=== PATIENT | female | born 1960 | race African-American/Black ===

== ENCOUNTER → 2021-08-06 | Outpatient (CLI) | payer OTHER, MEDICARE ==
[~2021-08-06] MED LIST: AMLO1TAB24 PO; ASPI81TA26 PO; METO1TAB32 PO; SYNT25TA PO; VENTAER INH
== END ==
LOC: M LABSMTC 11:11
PROVIDERS: ATTEND Anesthesiology
DX: Z01.812 Encounter for preprocedural laboratory examination (principal); Z20.822 Contact with and (suspected) exposure to COVID-19

== ENCOUNTER 2021-08-11 08:03 | Day surgery (SDC) | payer OTHER ==
[~2021-08-11] VITALS: Ht 152.4 cm; Wt 99.3 kg
[~2021-08-11 08:03] MED LIST changes: +NS 1,000 ML IV ONE
[2021-08-11] MEDS ORDERED: propofoL 200 MG/20 ML VIAL As Ordered ONE (08:33)
[2021-08-11] MEDS ORDERED: LIDOCAINE 2% 100MG/5ML SDV (FOR ANES.) As Ordered ONE (08:33)
[2021-08-11 10:18] VITALS: BP 141/67
== END 2021-08-11 10:18 | disposition home or self-care (01) ==
LOC: M OPP 08:03
PROVIDERS: ATTEND Internal Medicine Gastroenterology
DX: Z12.11 Encounter for screening for malignant neoplasm of colon (principal); Z80.0 Family history of malignant neoplasm of digestive organs; K63.5 Polyp of colon; K57.30 Diverticulosis of large intestine without perforation or abscess without bleeding; K64.8 Other hemorrhoids; I10 Essential (primary) hypertension; E03.9 Hypothyroidism, unspecified; J45.909 Unspecified asthma, uncomplicated; R42 Dizziness and giddiness; Z88.0 Allergy status to penicillin; Z79.82 Long term (current) use of aspirin; Z79.899 Other long term (current) drug therapy; Z80.3 Family history of malignant neoplasm of breast; Z83.3 Family history of diabetes mellitus; Z82.3 Family history of stroke

== ENCOUNTER → 2023-09-10 | Outpatient (REF) | payer OTHER ==
[~2023-09-10] MED LIST changes: -NS 1,000 ML IV ONE
[2023-09-10 18:20] LABS: BASO % 0.5 % (0.0-1.0); EOS # 0.3 10^3/uL (0.0-0.5); EOS % 3.8 % (0.0-3.0); HEMATOCRIT 40.7 % (36.0-47.0); HEMOGLOBIN 12.6 g/dl (12.0-15.5); LYMPH # 3.7 10^3/uL (1.5-5.0); LYMPH % 48.4 % (24.0-44.0); MEAN CORPUSCULAR HEMOGLOBIN 28.6 pg (27.0-33.0); MEAN CORPUSCULAR VOLUME 92.3 fl (80.0-96.0); MONO # 0.4 10^3/uL (0.0-0.8); MONO % 5.8 % (2.0-8.0); NEUTROPHILS # 3.1 10^3/uL (1.5-8.5); NEUTROPHILS % 41.1 % (36.0-66.0); PLATELET COUNT, AUTOMATED 323 10^3/uL (150-450); RED BLOOD COUNT 4.41 10^6/uL (4.00-5.40); WHITE BLOOD COUNT 7.6 10^3/uL (4.0-10.0)
[2023-09-10 18:50] LABS: HEMOGLOBIN A1c 6.2 % (4.0-6.0)
[2023-09-10 18:54] LABS: ALBUMIN 3.8 G/DL (3.2-5.2); ALKALINE PHOSPHATASE 84 U/L (46-116); ALT/SGPT < 9 U/L (7.0-40); AST/SGOT 9 U/L (<34); BILIRUBIN,TOTAL 0.4 MG/DL (0.3-1.2); BLOOD UREA NITROGEN 12 MG/DL (9-23); CALCIUM LEVEL 9.8 MG/DL (8.3-10.6); CARBON DIOXIDE LEVEL 32 MMOL/L (20-31); CHLORIDE LEVEL 103 MMOL/L (98-107); CHOLESTEROL LEVEL 189 MG/DL (<200); CHOLESTEROL RISK RATIO 4.38 (<5); CREATININE FOR GFR 0.81 MG/DL (0.55-1.30); GLOMERULAR FILTRATION RATE > 60.0 (>45); GLUCOSE, FASTING 86 MG/DL (74-106); HDL CHOLESTEROL 43.1 MG/DL (>40); LDL CHOLESTEROL 115.9 MG/DL (<100); NON-HDL-C 145.9 MG/DL; POTASSIUM SERUM 4.3 MMOL/L (3.5-5.1); SODIUM LEVEL 139 MMOL/L (136-145); TOTAL PROTEIN 7.9 G/DL (5.7-8.2); TRIGLYCERIDES LEVEL 150 MG/DL (<150)
[2023-09-10 18:58] LABS: THYROID STIMULATING HORMONE 4.645 uIU/ML (0.55-4.78)
[2023-09-10 18:59] LABS: TOTAL 25(OH) VITAMIN D 42.9 NG/ML (20.0-100.0)
== END ==
LOC: M LAB REF 14:53
PROVIDERS: ATTEND Physician Assistant
DX: I10 Essential (primary) hypertension (principal); E66.9 Obesity, unspecified; E55.9 Vitamin D deficiency, unspecified

== ENCOUNTER → 2023-10-26 | Outpatient (CLI) | payer OTHER | LOC: M WHC 15:07 | PROVIDERS: ATTEND Physician Assistant | DX: Z12.31 Encounter for screening mammogram for malignant neoplasm of breast (principal); R92.323 Mammographic fibroglandular density, bilateral breasts ==

== ENCOUNTER → 2024-04-12 | Outpatient (CLI) | payer OTHER, MEDICARE | LOC: M CARPUL 15:16 | PROVIDERS: ATTEND Physician Assistant | DX: R06.09 Other forms of dyspnea (principal) ==

== ENCOUNTER → 2024-08-10 | Outpatient (CLI) | payer OTHER, MEDICARE | LOC: M EKG 15:49 | PROVIDERS: ATTEND Physician Assistant | DX: R00.2 Palpitations (principal) ==

== ENCOUNTER → 2024-08-29 | Outpatient (CLI) | payer MEDICARE ==
[2024-08-29 12:13] LABS: HEMATOCRIT 37.5 % (36.0-47.0); HEMOGLOBIN 11.9 g/dl (12.0-15.5); MEAN CORPUSCULAR HEMOGLOBIN 29.2 pg (27.0-33.0); MEAN CORPUSCULAR HGB CONC 31.7 g/dl (32.0-36.5); MEAN CORPUSCULAR VOLUME 92.1 fl (80.0-96.0); PLATELET COUNT, AUTOMATED 318 10^3/uL (150-450); RED BLOOD COUNT 4.07 10^6/uL (4.00-5.40); WHITE BLOOD COUNT 8.9 10^3/uL (4.0-10.0)
[2024-08-29 12:47] LABS: ALBUMIN 3.8 G/DL (3.2-5.2); ALKALINE PHOSPHATASE 76 U/L (35-104); ALT/SGPT 16 U/L (7.0-40); AST/SGOT 11 U/L (<34); BILIRUBIN,TOTAL 0.6 MG/DL (0.3-1.2); BLOOD UREA NITROGEN 7 MG/DL (9-23); CALCIUM LEVEL 9.4 MG/DL (8.3-10.6); CARBON DIOXIDE LEVEL 32 MMOL/L (20-31); CHLORIDE LEVEL 104 MMOL/L (98-107); CHOLESTEROL LEVEL 185 MG/DL (<200); CHOLESTEROL RISK RATIO 4.13 (<5); CREATININE FOR GFR 0.71 MG/DL (0.55-1.30); GLOMERULAR FILTRATION RATE > 60.0 (>45); GLUCOSE, FASTING 120 MG/DL (74-106); HDL CHOLESTEROL 44.7 MG/DL (>40); LDL CHOLESTEROL 119.1 MG/DL (<100); MAGNESIUM LEVEL 2.2 MG/DL (1.8-2.4); NON-HDL-C 140.3 MG/DL; POTASSIUM SERUM 3.9 MMOL/L (3.5-5.1); SODIUM LEVEL 142 MMOL/L (136-145); TOTAL PROTEIN 7.9 G/DL (5.7-8.2); TRIGLYCERIDES LEVEL 106 MG/DL (<150)
[2024-08-29 12:48] LABS: FREE T4 1.06 NG/DL (0.89-1.76); THYROID STIMULATING HORMONE 5.402 uIU/ML (0.55-4.78)
== END ==
LOC: M LAB 11:33
PROVIDERS: ATTEND Physician Assistant
DX: E78.5 Hyperlipidemia, unspecified (principal); R00.2 Palpitations; R06.02 Shortness of breath

== ENCOUNTER → 2024-08-31 | Outpatient (CLI) | payer MEDICARE | LOC: M RAD 15:45 | PROVIDERS: ATTEND Physician Assistant | DX: R07.9 Chest pain, unspecified (principal) ==

== ENCOUNTER → 2024-09-19 | Outpatient (REF) | payer MEDICARE ==
[2024-09-19 17:39] LABS: APPEARANCE, URINE HAZY (CLEAR); BACTERIA, URINE AUTO NEGATIVE (NEGATIVE); BILIRUBIN, URINE AUTO NEGATIVE (NEGATIVE); BLOOD, URINE BLOOD NEGATIVE (NEGATIVE); COLOR, URINE YELLOW (YELLOW); GLUCOSE, URINE (UA) AUTO NEGATIVE (NEGATIVE); KETONE, URINE AUTO NEGATIVE (NEGATIVE); LEUKOCYTE ESTERASE, URINE AUTO TRACE (NEGATIVE); MUCUS, URINE SMALL (NEGATIVE); NITRITE, URINE AUTO NEGATIVE (NEGATIVE); PROTEIN, URINE AUTO NEGATIVE (NEGATIVE); RBC, URINE AUTO 1 /HPF (0-3); SPECIFIC GRAVITY URINE AUTO 1.013 (1.002-1.035); SQUAMOUS EPITHELIAL CELL UR AU 6 /HPF (0-6); UROBILINOGEN, URINE AUTO 0.2 mg/dL (0.0-2.0); WBC, URINE AUTO 11 /HPF (0-3)
[2024-09-19 19:07] LABS: CREATININE, URINE 117.9 MG/DL; MAU/CREAT RATIO 16.1 MCG/MG (0.0-30.0)
== END ==
LOC: M LAB REF 17:04
PROVIDERS: ATTEND Physician Assistant
DX: I10 Essential (primary) hypertension (principal)

== ENCOUNTER → 2024-12-11 | Outpatient (REF) | payer MEDICARE ==
[2024-12-11 18:40] LABS: BASO # 0.0 10^3/uL (0.0-0.2); BASO % 0.2 % (0.0-1.0); EOS # 0.4 10^3/uL (0.0-0.5); EOS % 4.6 % (0.0-3.0); LYMPH # 4.0 10^3/uL (1.5-5.0); LYMPH % 49.4 % (24.0-44.0); MONO # 0.4 10^3/uL (0.0-0.8); MONO % 5.1 % (2.0-8.0); NEUTROPHILS # 3.2 10^3/uL (1.5-8.5); NEUTROPHILS % 39.8 % (36.0-66.0); PLATELET COUNT, AUTOMATED 328 10^3/uL (150-450)
[2024-12-11 19:04] LABS: CALCIUM LEVEL 9.0 MG/DL (8.3-10.6); CARBON DIOXIDE LEVEL 28.0 MMOL/L (20-31); CHLORIDE LEVEL 104.0 MMOL/L (98-107); CREATININE FOR GFR 0.77 MG/DL (0.55-1.30); GLOMERULAR FILTRATION RATE 85.0 (>45); IRON (FE) 54.0 UG/DL (50-170); PERCENT SATURATION 19.6 % (13.2-45.0); POTASSIUM SERUM 4.5 MMOL/L (3.5-5.1); SODIUM LEVEL 142.0 MMOL/L (136-145)
[2024-12-11 19:08] LABS: THYROXINE (T4) 8.6 UG/DL (4.5-10.9)
[2024-12-11 19:11] LABS: T UPTAKE 33.7 % (22.5-37.0)
== END ==
LOC: M LAB REF 17:16
PROVIDERS: ATTEND Physician Assistant
DX: I10 Essential (primary) hypertension (principal); E03.8 Other specified hypothyroidism; D64.9 Anemia, unspecified

== ENCOUNTER → 2025-02-19 | Outpatient (CLI) | payer MEDICARE | LOC: M SLEEP 20:00 | PROVIDERS: ATTEND Physician Assistant | DX: R40.0 Somnolence (principal); R06.83 Snoring; G47.33 Obstructive sleep apnea (adult) (pediatric) ==

== ENCOUNTER → 2025-04-03 | Outpatient (CLI) | payer MEDICARE ==
[~2025-04-03] MED LIST changes: +METHACHOLINE KIT (6 VIAL.NEB PREMIX) INH ONE
== END ==
LOC: M RAD 14:29
PROVIDERS: ATTEND Physician Assistant
DX: R06.02 Shortness of breath (principal); R05.9 Cough, unspecified
CPT/HCPCS: 71250; 95070; J7674

== ENCOUNTER → 2025-04-17 | Outpatient (CLI) | payer MEDICARE ==
[~2025-04-17] MED LIST changes: -METHACHOLINE KIT (6 VIAL.NEB PREMIX) INH ONE
== END ==
LOC: M SLEEP 20:00
PROVIDERS: ATTEND Physician Assistant
DX: G47.33 Obstructive sleep apnea (adult) (pediatric) (principal)